=== PATIENT | female | born 1960 | race Caucasian/White ===

== ENCOUNTER 2016-12-28 09:40 | Emergency (ER) | payer BC ==
[~2016-12-28] VITALS: Ht 157.5 cm; Wt 70.9 kg
[~2016-12-28 09:40] MED LIST: ASPI81TA28 PO; CALCTAB5 PO; CHOL100010 PO; MISCCAP80 PO; MULT-506 PO; OMEG10007 PO; PANT40TA PO; VSC/5 PO
[2016-12-28 09:44] VITALS: TEMP 36.5; Ht 157.5 cm; Wt 70.9 kg
[2016-12-28] MEDS ORDERED: CHOL1TAB42 PO (09:56)
[2016-12-28] MEDS ORDERED: CALC-393 PO (09:56)
[2016-12-28] MEDS ORDERED: KETOROLAC TROMETHAMINE 60 MG/2 ML VIAL IM STA (10:29)
[2016-12-28] MEDS ORDERED: KETOROLAC TROMETHAMINE 30 MG/ML VIAL ONE (10:32)
--- NOTE | 2016-12-28 11:41 | DIAGNOSTIC IMAGING REPORT ---
CT SCAN OF THE BRAIN WITHOUT IV CONTRAST CLINICAL HISTORY: Head injury several days ago. Persistent headache. COMPARISON STUDY: No priors. TECHNIQUE: Unenhanced axial CT scan of the brain is performed from the vertex to the skull base. Automated dose control exposure was utilized. FINDINGS: Brain parenchyma: The brain parenchyma is normal in appearance. There is no hemorrhage, mass effect, or evidence of acute territorial ischemia by CT criteria. Franks-white matter is preserved. No extra-axial fluid collection is seen. Ventricles, sulci, cisterns: Normal in configuration. Intracranial vasculature: The visualized intracranial vasculature at the skull base is normal in appearance. Calvarium: There is no depressed calvarial fracture. Sinuses and mastoids: The visualized paranasal sinuses are clear. The mastoid air cells are well pneumatized. Orbits: The bony orbits are grossly intact. IMPRESSION: No acute intracranial abnormality. Electronically signed by: Abel Cobb M.D. 12/28/2016 11:39 AM Dictated Date/Time: 12/28/2016 11:37 AM
--- NOTE | 2016-12-28 11:45 | DIAGNOSTIC IMAGING REPORT ---
CERVICAL SPINE W/O CT DOSE: 889.69 mGy.cm HISTORY: Headache status post injury. head trauma TECHNIQUE: Multiple axial CT images of the cervical spine were obtained without contrast. COMPARISON: None. FINDINGS: Vertebral body heights and alignment are normal. No fracture or subluxation is identifed. The intervertebral disc spaces are preserved. No significant central canal or neural foraminal stenosis is identified. There is minimal spurring at the C1-C2 articulation. Ossifications are seen adjacent to the posterior spinous process at C7. The odontoid process and lateral close of C1 are intact. Mild degenerative changes are seen within the temporomandibular joints bilaterally. The cervical soft tissues appear unremarkable. The visualized lung apices appear clear. IMPRESSION: 1. No acute fracture or dislocation of the cervical spine. 2. No significant degenerative changes. The above report was generated using voice recognition software. It may contain grammatical, syntax or spelling errors. Electronically signed by: Pepe Huerta M.D. 12/28/2016 11:44 AM Dictated Date/Time: 12/28/2016 11:40 AM
[2016-12-28 12:20] VITALS: BP 141/90; PULSE 68; O2SAT 99
--- NOTE | 2016-12-28 17:09 | EMERGENCY ROOM VISIT NOTE ---
History Report prepared by Luisibneida: Jamie Sánchez Under the Supervision of: Dr. Rafa Short D.O. First contact with patient: 10:20 Chief Complaint: HEAD INJURY (MINOR) Stated Complaint: HEAD ACHE, HIT HEAD ON TUESDAY History of Present Illness The patient is a 56 year old female who presents to the Emergency Room with complaints of constant head pain s/p beginning two days ago after hitting her head. She states that she hit the top of her head on a playhouse while walking into it, because she did not duck enough. She states that she "saw stars" when she hit her head. The patient did not lose consciousness. She states that she has had a headache and neck pain ever since. She states "I hit my head a lot". The patient takes aspirin but denies any other blood thinners. Pt denies change in vision, fevers, chest pain, shortness of breath, nausea, vomiting, diarrhea, weakness, pain with urination, and melena. Source of History: patient Onset: Two days ago Position: head Quality: ache Timing: constant Associated Symptoms: + neck pain, No fevers, No chest pain, No SOB, No vomiting, No abdominal pain, No urinary symptoms, No weakness Review of Systems See HPI for pertinent positives & negatives. A total of 10 systems reviewed and were otherwise negative. Past Medical & Surgical Medical Problems: (1) section (2) Gastroesophageal reflux disease (3) Hysterectomy (4) Tendinitis Family History No pertinent family history stated. Social History Smoking Status: Never Smoker Alcohol Use: occasionally Drug Use: none Marital Status: Housing Status: lives with significant other Occupation Status: employed Current/Historical Medications Scheduled Aspirin (Aspirin Ec), 81 MG PO QAM Calcium Carbonate (Calcium), 600 MG PO BID Cholecalciferol (Vitamin D), 5,000 UNITS PO QAM Fish Oil ([place]-3), 1 CAP PO QAM Multivitamin (Multivitamin), 1 TAB PO QAM Pantoprazole (Protonix), 40 MG PO QAM Probiotic Product (Probiotic), 1 CAPSULE PO QAM Solifenacin (Vesicare), 5 MG PO QAM Allergies Coded Allergies: Iodinated Contrast Media (Verified Allergy, Unknown, HIVES, 12/28/16) Penicillins (Verified Allergy, Unknown, RASH, 12/28/16) Physical Exam Vital Signs Date Time Temp Pulse Resp B/P (MAP) Pulse Ox O2 Delivery O2 Flow Rate FiO2 12/28/16 12:20 68 18 141/90 99 12/28/16 11:18 74 18 141/90 98 Room Air 12/28/16 09:44 36.5 86 18 149/88 100 Room Air Physical Exam GENERAL: alert, well appearing, well nourished, no distress, non-toxic HEAD: normal cephalic, Minimal tenderness on palpation of the superior posterior aspect. EYE EXAM: normal conjunctiva, PERRL and EOM's grossly intact OROPHARYNX: no exudate, no erythema, lips, buccal mucosa, and tongue normal and mucous membranes are moist EARS: TMs clear b/l NECK: supple, no nuchal rigidity, no adenopathy. Minimal tenderness in the paraspinal cervical region. CHEST: stable to compression anteriorly and posteriorly LUNGS: clear to auscultation. Normal chest wall mechanics HEART: no murmurs, S1 normal and S2 normal ABDOMEN: abdomen soft, non-tender, normo-active bowel sounds, no masses, no rebound or guarding. PELVIS: stable to compression anteriorly and posteriorly BACK: Back is symmetrical on inspection and there is no deformity, no midline tenderness, no CVA tenderness. UPPER EXTREMITIES: full active and passive range of motion of all joints without tenderness to palpation LOWER EXTREMITIES: full active and passive range of motion of all joints without tenderness to palpation NEURO EXAM: Normal sensorium, cranial nerves II-XII grossly intact, normal speech, no gross weakness of arms, no gross weakness of legs. GCS: 15. Medical Decision & Procedures ER Provider Diagnostic Interpretation: CT:Per my review, radiologist interpretation. CT SCAN OF THE BRAIN WITHOUT IV CONTRAST FINDINGS: Brain parenchyma: The brain parenchyma is normal in appearance. There is no hemorrhage, mass effect, or evidence of acute territorial ischemia by CT criteria. Franks-white matter is preserved. No extra-axial fluid collection is seen. Ventricles, sulci, cisterns: Normal in configuration. Intracranial vasculature: The visualized intracranial vasculature at the skull base is normal in appearance. Calvarium: There is no depressed calvarial fracture. Sinuses and mastoids: The visualized paranasal sinuses are clear. The mastoid air cells are well pneumatized. Orbits: The bony orbits are grossly intact. IMPRESSION: No acute intracranial abnormality. Electronically signed by: Abel Vilbert, M.D. CERVICAL SPINE W/O FINDINGS: Vertebral body heights and alignment are normal. No fracture or subluxation is identifed. The intervertebral disc spaces are preserved. No significant central canal or neural foraminal stenosis is identified. There is minimal spurring at the C1-C2 articulation. Ossifications are seen adjacent to the posterior spinous process at C7. The odontoid process and lateral close of C1 are intact. Mild degenerative changes are seen within the temporomandibular joints bilaterally. The cervical soft tissues appear unremarkable. The visualized lung apices appear clear. IMPRESSION: 1. No acute fracture or dislocation of the cervical spine. 2. No significant degenerative changes. The above report was generated using voice recognition software. It may contain grammatical, syntax or spelling errors. Electronically signed by: Pepe Huerta M.D. Medications Administered Medications (Trade) Dose Ordered Sig/Norberto Route Start Time Stop Time Status Last Admin Dose Admin Ketorolac Tromethamine (Toradol Inj) 30 mg NOW STAT IM 12/28/16 10:29 12/28/16 10:31 DC 12/28/16 10:29 30 MG ED Course ED COURSE: Vital signs were reviewed and showed hypertension The patients medical record was reviewed The above diagnostic studies were performed and reviewed. ED treatments and interventions as stated above. 1023: The patient was evaluated in room C3. A complete history and physical examination was performed. 1029: Ordered Toradol Inj 30 mg IM. 1200: Upon reevaluation, the patient is resting comfortably. I discussed my findings with the patient and she understands and agrees with the treatment plan. Based on the patients age, coexisting illnesses, exam and lab findings the decision to treat as an outpatient was made. The patient remained stable while under my care. The patient appeared well at the time of discharge. Medical Decision Differential diagnoses include major intracranial, cervical, spinal, thoracic, abdominal, pelvic and neurologic injury. Fracture, contusion, sprain, strain, laceration, abrasions included as well. Patient is a 48-year-old female who presents the ER following hitting her head this past Tuesday. She complains of constant headache since the event. No vomiting. She complete the neurologically intact. CT head and cervical spine were negative. She is given IM Toradol. She was updated that this is likely a concussion and discharged to follow-up with her PCP. She was given strict concussion instructions and instructed not to return to any physical activity until cleared by PCP. Discussed with Pt concerning signs and symptoms to watch out for. Pt was instructed to follow up with their PCP and discussed with the patient their option to return to the ED at anytime for persistent or worsening symptoms. The appropriate anticipatory guidance and out-patient management, including indications for return to the emergency department, were explained at length to the patient and understood. Impression Primary Impression: Concussion Scribe Attestation The scribe's documentation has been prepared under my direction and personally reviewed by me in its entirety. I confirm that the note above accurately reflects all work, treatment, procedures, and medical decision making performed by me. Departure Information Dispostion Home / Self-Care Referrals RV. Yost MD (PCP) Forms HOME CARE DOCUMENTATION FORM, IMPORTANT VISIT INFORMATION Patient Instructions ED Concussion, My [facility] Additional Instructions Please follow up with your primary care doctor with in the next 24 hours. Any worsening of your symptoms, please return to the ED immediately. This includes confusion, weakness in the arms or legs, worsening headache, change in vision, or any other concerning signs or symptoms from your standpoint. Problem Qualifiers Primary Impression: Concussion Encounter type: initial encounter Loss of consciousness presence/duration: without LOC Qualified Codes: S06.0X0A - Concussion without loss of consciousness, initial encounter
== END 2016-12-28 12:21 | disposition home or self-care (01) ==
LOC: C.EDB 09:41 → C.EDC 12:21
DX: S06.0X0A Concussion without loss of consciousness, initial encounter (principal); W22.8XXA Striking against or struck by other objects, initial encounter; K21.9 Gastro-esophageal reflux disease without esophagitis; M77.9 Enthesopathy, unspecified; Z79.82 Long term (current) use of aspirin; Z79.899 Other long term (current) drug therapy

== ENCOUNTER → 2017-03-31 | Outpatient (CLI) | payer BC ==
[~2017-03-31] MED LIST changes: +CALC-393 PO; -CALCTAB5 PO; -CHOL100010 PO; +CHOL1TAB42 PO
--- NOTE | 2017-03-31 13:55 | MAMMOGRAPHY REPORT ---
BILATERAL DIGITAL SCREENING MAMMOGRAM TOMOSYNTHESIS WITH CAD: 03/31/2017 CLINICAL HISTORY: Routine screening. Patient has no complaints. TECHNIQUE: Breast tomosynthesis in addition to standard 2D mammography was performed. Current study was also evaluated with a Computer Aided Detection (CAD) system. COMPARISON: Comparison is made to exams dated: 03/30/2016 mammogram, 03/27/2015 mammogram, 03/21/2014 mammogram, 03/15/2013 mammogram, 03/13/2012 mammogram, and 03/02/2011 mammogram - [facility]. BREAST COMPOSITION: There are scattered areas of fibroglandular density in both breasts. FINDINGS: No suspicious masses, calcifications, or areas of architectural distortion are noted in ei ther breast. There has been no significant interval change compared to prior exams. IMPRESSION: ACR BI-RADS CATEGORY 1: NEGATIVE There is no mammographic evidence of malignancy. A 1 year screening mammogram is recommended. The pa tient will receive written notification of the results. Approximately 10% of breast cancers are not detected with mammography. A negative mammographic report should not delay biopsy if a clinically suggestive mass is present. Cara Cole M.D. /:03/31/2017 08:36:11 Enrichment Director: Jennie COLLINS(Kamran)(M), [facility] letter sent: Normal 1/2 BI-RADS Code: ACR BI-RADS Category 1: Negative
== END | disposition home or self-care (01) ==
LOC: C.MAMM 08:07
PROVIDERS: ATTEND Obstetrics & Gynecology
DX: Z12.31 Encounter for screening mammogram for malignant neoplasm of breast (principal)